=== PATIENT | female | born 1985 | race Caucasian/White ===

== ENCOUNTER 2017-01-19 11:53 | Emergency (ER) | payer OTHER ==
[~2017-01-19] VITALS: Ht 160 cm; Wt 68.0 kg
[2017-01-19 12:21] LABS: BILIRUBIN,URINE NEGATIVE (NEGATIVE); KETONES,URINE NEGATIVE (NEGATIVE); LEUKOCYTE ESTERASE ,URINE NEGATIVE (NEGATIVE); NITRITE,URINE NEGATIVE (NEGATIVE); PH,URINE 6 (5-9); PROTEIN,URINE NEGATIVE (NEGATIVE); UROBILINOGEN,URINE NORMAL (NORMAL)
[2017-01-19] MEDS ORDERED: METH25VI57 (12:31)
[2017-01-19] MEDS ORDERED: CERT400S SQ (12:31)
[2017-01-19 12:38] LABS: BASOPHILS % (AUTO) 1 % (0-10); EOSINOPHILS # (AUTO) 0.1 10^3/uL (0.0-0.3); EOSINOPHILS % (AUTO) 2 % (0-10); LYMPHOCYTES # (AUTO) 1.3 X 10^3 (1.0-4.0); LYMPHOCYTES % (AUTO) 44 % (12-44); MEAN CORPUSCULAR HEMOGLOBIN 31 PG (25-34); MEAN CORPUSCULAR HGB CONC 33 G/DL (32-36); MEAN CORPUSCULAR VOLUME 91 FL (80-99); MEAN PLATELET VOLUME 10.2 FL (7.4-10.4); MONOCYTES # (AUTO) 0.6 X 10^3 (0.0-1.0); MONOCYTES % (AUTO) 19 % (0-12); NEUTROPHILS % (AUTO) 34 % (42-75); PLATELET COUNT 220 10^3/uL (130-400); RED BLOOD COUNT 4.32 10^6/uL (4.35-5.85); RED CELL DISTRIBUTION WIDTH 12.1 % (10.0-14.5); WHITE BLOOD COUNT 2.9 10^3/uL (4.3-11.0)
[2017-01-19 12:51] LABS: ALANINE AMINOTRANSFERASE 21 U/L (0-55); ALBUMIN 4.3 G/DL (3.2-4.5); ANION GAP 5 MMOL/L (5-14); ASPARTATE AMINO TRANSFERASE 17 U/L (5-34); BILIRUBIN,TOTAL 0.3 MG/DL (0.1-1.0); BLOOD UREA NITROGEN 11 MG/DL (7-18); BUN/CREATININE RATIO 13; CALCIUM 8.3 MG/DL (8.5-10.1); CARBON DIOXIDE 24 MMOL/L (21-32); CHLORIDE 110 MMOL/L (98-107); CREATININE SERUM 0.84 MG/DL (0.60-1.30); GFR ESTIMATED > 60; GLUCOSE 89 MG/DL (70-105); POTASSIUM 4.3 MMOL/L (3.6-5.0); SODIUM 139 MMOL/L (135-145); TOTAL PROTEIN 6.9 G/DL (6.4-8.2)
--- NOTE | 2017-01-19 12:55 | ED GU-Female ---
General Chief Complaint: -Female Stated Complaint: UTI SYMPTOMS Nursing Triage Note: AMBULATED TO ROOM 08 WITH COMPLAINTS OF CHRONIC UTI SX. STATES SHE HAS BEEN TO THE AND HAS BEEN ON X2 DIFFERENT ABX THAT SEEMS UNSUCCESSFUL. Nursing Sepsis Screen: No Definite Risk Source: patient Exam Limitations: no limitations History of Present Illness Time seen by provider: 12:50 Initial Comments The patient is a 31-year-old white female known to me. 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 She reports that in the recent cycle she has had 2 previous apparent urinary tract infections for which she has taken antibiotics. She is now symptomatic again with dysuria and frequency as well as radiation up the left flank towards the kidneys posteriorly. She takes immunosuppressants for her rheumatoid arthritis. She has had many urinary tract infection symptoms over the years and has seen a urologist in [place]. Although it had been discussed she has not had a cystoscopy and biopsy. However it had been discussed as a possibility of interstitial cystitis and ultimately needing a biopsy. She has felt hot but has not taken her temperature. There've been no sweats or chills. Timing/Duration: week, getting worse, changing over time Severity/Quality: moderate Location: left flank Radiation: RLQ, LLQ Activities at Onset: none Prior Genitourinary Problems: similar symptoms Associated Symptoms: dysuria, urinary frequency Allergies and Home Medications Allergies Coded Allergies: No Known Drug Allergies (Verified , 09/04/08) Home Medications Certolizumab Pegol 400 Mg/2 Ml Syringekit, 400 MG SQ, (Reported) Methotrexate Sodium 25 Mg/1 Ml Vial, #10 (Reported) Constitutional: see HPI EENTM: no symptoms reported Respiratory: no symptoms reported Cardiovascular: no symptoms reported Gastrointestinal: no symptoms reported Genitourinary: see HPI Musculoskeletal: joint pain (rheumatoid arthritis), joint swelling, muscle stiffness Psychiatric/Neurological: No Symptoms Reported Endocrine: No Symptoms Reported Hematologic/Lymphatic: No Symptoms Reported Past Bgifckm-Zoptva-Tjmouq Hx Patient Social History Recent Foreign Travel: No Contact w/Someone Who Travel: No Recent Infectious Disease Expo: No Recent Hopitalizations: No Surgeries HX Surgeries: Yes (TONSILS REMOVED) Surgeries: Section Respiratory Hx Respiratory Disorders: No Cardiovascular Hx Cardiac Disorders: No Neurological Hx Neurological Disorders: No Reproductive System : No Hx Reproductive Disorders: No Genitourinary Hx Genitourinary Disorders: No Gastrointestinal Hx Gastrointestinal Disorders: No Musculoskeletal Hx Musculoskeletal Disorders: Yes Musculoskeletal Disorders: Rheumatoid Arthritis Endocrine Hx Endocrine Disorders: No HEENT HX ENT Disorders: No Cancer Hx Cancer: No Psychosocial Hx Psychiatric Problems: No Blood Transfusions Hx Blood Disorders: No Physical Exam Vital Signs Vital Sign - Last 12Hours 01/19/17 12:15 Temp 96.6 Pulse 85 Resp 16 B/P (MAP) 137/92 Pulse Ox 98 Capillary Refill : Less Than 3 Seconds General Appearance: mild distress HEENT: normal ENT inspection Neck: full range of motion Cardiovascular: normal peripheral pulses Respiratory: chest non-tender, lungs clear, normal breath sounds, no respiratory distress, no accessory muscle use Gastrointestinal: normal bowel sounds, other (tenderness to palpation distal to umbilicus. Somewhat more so on the right than the left) Back: CVA tenderness (L) Extremities: other (obvious an abundant evidence of rheumatoid arthritis with enlargement and deformity of the MP joints and IP joints of the hands bilaterally) Neurologic/Psychiatric: supervisor byproducts II-XII nml as tested, no motor/sensory deficits, alert, normal mood/affect, oriented x 3 Skin: normal color, warm/dry, cyanosis, cool, diaphoresis, pallor Lymphatic: no adenopathy, axilla node tender (R), axilla node tender (L), inguinal node tender (R), inguinal node tender (L) Progress/Results/Core Measures Results/Orders Lab Results Laboratory Tests Test 01/19/17 12:12 01/19/17 12:25 Range/Units Urine Color YELLOW Urine Clarity CLEAR Urine pH 6 5-9 Urine Specific [place] 1.015 L 1.016-1.022 Urine Protein NEGATIVE NEGATIVE Urine Glucose (UA) NEGATIVE NEGATIVE Urine Ketones NEGATIVE NEGATIVE Urine Nitrite NEGATIVE NEGATIVE Urine Bilirubin NEGATIVE NEGATIVE Urine Urobilinogen NORMAL NORMAL MG/DL Urine Leukocyte Esterase NEGATIVE NEGATIVE Urine RBC (Auto) 3+ H NEGATIVE Urine RBC 0-2 /HPF Urine WBC NONE /HPF Urine Squamous Epithelial Cells 2-5 /HPF Urine Crystals NONE /LPF Urine Bacteria NEGATIVE /HPF Urine Casts NONE /LPF Urine Mucus NEGATIVE /LPF Urine Culture Indicated NO White Blood Count 2.9 L 4.3-11.0 10^3/uL Red Blood Count 4.32 L 4.35-5.85 10^6/uL Hemoglobin 13.2 11.5-16.0 G/DL Hematocrit 40 35-52 % Mean Corpuscular Volume 91 80-99 FL Mean Corpuscular Hemoglobin 31 25-34 PG Mean Corpuscular Hemoglobin Concent 33 32-36 G/DL Red Cell Distribution Width 12.1 10.0-14.5 % Platelet Count 220 130-400 10^3/uL Mean Platelet Volume 10.2 7.4-10.4 FL Neutrophils (%) (Auto) 34 L 42-75 % Lymphocytes (%) (Auto) 44 12-44 % Monocytes (%) (Auto) 19 H 0-12 % Eosinophils (%) (Auto) 2 0-10 % Basophils (%) (Auto) 1 0-10 % Neutrophils # (Auto) 1.0 L 1.8-7.8 X 10^3 Lymphocytes # (Auto) 1.3 1.0-4.0 X 10^3 Monocytes # (Auto) 0.6 0.0-1.0 X 10^3 Eosinophils # (Auto) 0.1 0.0-0.3 10^3/uL Basophils # (Auto) 0.0 0.0-0.1 10^3/uL Neutrophils % (Manual) 30 % Lymphocytes % (Manual) 38 % Monocytes % (Manual) 25 % Eosinophils % (Manual) 3 % Basophils % (Manual) 2 % Band Neutrophils 1 % Reactive Lymphocytes 1 % Blood Morphology Comment NORMAL Sodium Level 139 135-145 MMOL/L Potassium Level 4.3 3.6-5.0 MMOL/L Chloride Level 110 H 98-107 MMOL/L Carbon Dioxide Level 24 21-32 MMOL/L Anion Gap 5 5-14 MMOL/L Blood Urea Nitrogen 11 7-18 MG/DL Creatinine 0.84 0.60-1.30 MG/DL Estimat Glomerular Filtration Rate > 60 BUN/Creatinine Ratio 13 Glucose Level 89 70-105 MG/DL Calcium Level 8.3 L 8.5-10.1 MG/DL Total Bilirubin 0.3 0.1-1.0 MG/DL Aspartate Amino Transf (AST/SGOT) 17 5-34 U/L Alanine Aminotransferase (ALT/SGPT) 21 0-55 U/L Alkaline Phosphatase 52 40-136 U/L Total Protein 6.9 6.4-8.2 G/DL Albumin 4.3 3.2-4.5 G/DL My Orders Orders - IVY LYON MD Ua Culture If Indicated (01/19/17 12:05) Ct Abdomen/Pelvis W (01/19/17 13:12) Iohexol Injection (Omnipaque 350 Mg/Ml 1 (01/19/17 13:15) Sodium Chloride Flush (Catheter Flush Sy (01/19/17 13:15) Ns (Ivpb) (Sodium Chloride 0.9% Ivpb Bag (01/19/17 13:15) Ondansetron Injection (Zofran Injectio (01/19/17 13:45) Medications Given in ED Current Medications Medications Dose Ordered Sig/Pati Route Start Time Stop Time Status Last Admin Dose Admin Iohexol 100 ml ONCE ONCE IV 01/19/17 13:15 01/19/17 13:24 DC 01/19/17 13:26 100 ML Ondansetron HCl 8 mg ONCE ONCE IVP 01/19/17 13:45 01/19/17 13:46 DC 01/19/17 13:47 8 MG Sodium Chloride 10 ml NEEDED PRN IV 01/19/17 13:15 01/19/17 13:26 10 ML Sodium Chloride 100 ml ONCE ONCE IV 01/19/17 13:15 01/19/17 13:24 DC 01/19/17 13:26 80 ML Vital Signs/I&O Vital Sign - Last 12Hours 01/19/17 12:15 Temp 96.6 Pulse 85 Resp 16 B/P (MAP) 137/92 Pulse Ox 98 Blood Pressure Mean: 107 Point of Care Testing Urine -Bedside: Negative Departure Communication Progress Notes [address] Raymundo. The CT scan was negative save apparent thickening of the bladder wall. This would seem to fit better with the possibility of interstitial cystitis. We have elected not to give empiric and the attic spoke to culture her urine. Her white count is depressed and the differential shifted ostensibly because of her immunosuppression for rheumatoid arthritis. In the meantime she is advised to take Pyridium. Impression Impression: Primary Impression: cystitis Disposition: 01 HOME, SELF-CARE Condition: Stable/Unchanged Departure-Patient Inst. Decision time for Depature: 14:23 Referrals: JARAD RAYMUNDO MD (PCP/Family) Primary Care Physician Add. Discharge Instructions: All discharge instructions reviewed with patient and/or family. Voiced understanding. Resume Pyridium. Plenty of liquids. Dr. Raymundo is on-call this weekend. Your culture should be available by Sunday. You may call the senior operator and ask for her. Scripts Phenazopyridine HCl (Pyridium) 200 Mg Tablet 1 TAB PO 3 times a day, #20 TAB Prov: IVY LYON MD 01/19/17 VIY YLON MD Jan 19, 2017 12:55
[2017-01-19 13:06] LABS: BAND NEUTROPHILS 1 %; BASOPHILS % (MANUAL) 2 %; EOSINOPHILS % (MANUAL) 3 %; LYMPHOCYTES % (MANUAL) 38 %; NEUTROPHILS % (MANUAL) 30 %; REACTIVE LYMPHOCYTES 1 %
[2017-01-19] MEDS ORDERED: NS 100 ML (IVPB) BAG IV ONE (13:15)
[2017-01-19] MEDS ORDERED: CATHETER FLUSH 10 ML SYR IV PRN (13:15)
[2017-01-19] MEDS ORDERED: IOHEXOL 350 MG/ML 100 ML (OMNIPAQUE 350) VIAL IV ONE (13:15)
[2017-01-19] MEDS ORDERED: ONDANSETRON 4 MG/2 ML (SDV) Z0FRAN IVP ONE (13:45)
--- NOTE | 2017-01-19 13:57 | Diagnostic Imaging Report ---
PROCEDURE: CT abdomen and pelvis with contrast. TECHNIQUE: Multiple contiguous axial images were obtained through the abdomen and pelvis after administration of intravenous contrast. INDICATION: Recurrent UTIs. Pain on left flank area. FINDINGS: The lung bases are clear. The kidneys show no evidence of hydronephrosis. There are no renal calculi. No renal masses. There is symmetrical nephrogram effect with delayed images showing normal opacification of renal collecting system and ureters bilaterally. Ureters appear normal to the bladder. Bilateral ureteral jets are present. Bladder shows mild thickening of the wall, though is not particularly distended. No pelvic masses are present. The liver appears normal. Gallbladder and bile ducts are normal. The pancreas and spleen are normal. Adrenal glands are not enlarged. The stomach and small bowel are nondistended. There is normal stool and gas pattern throughout the colon. Appendix appears to be absent with clip at the tip of the cecum. There is no free air or free fluid. IMPRESSION: 1. Normal-appearing kidneys and ureters. 2. There is uniform thickening of the bladder wall which may be secondary to chronic cystitis though this may be from underdistention of the bladder as well. Dictated by: Dictated on workstation # [id number]
[2017-01-19] MEDS ORDERED: PHEN-640 PO (14:26)
[2017-01-19 14:41] VITALS: BP 128/93
--- OUTSIDE RECORDS SUMMARY | 2017-02-11 08:13 | XMS REPORT | Continuity of Care Document ---
Author Author [facility] Organization [facility] Address Unknown Phone Unavailable Care Team Providers Care Video Game Script Writer Name Role Phone Bernadette Alves PCP [phone] Source Comments Some departments are not documenting in the electronic medical record. If you do not see the information that you expected, contact Release of Information in the Health Information Management department at [phone] for further assistance in locating additional records.[facility] Active Allergies and Adverse Reactions No Known Allergies Current Medications Prescription Sig. Disp. Refills Start End Date Status Date LORazepam (ATIVAN) 1 mg Take 1 mg by mouth as Active tablet Needed. MULTIVITAMIN PO Take 1 Tab by mouth Active daily. biotin 1 mg cap Take 1 Cap by mouth Active daily. lactobacillus rhamnosus Take 1 Cap by mouth Active GG (LACTOBACILLUS daily. RHAMNOSUS (GG)) 15 billion cell cpSP traMADol (ULTRAM) 50 mg Take 1 tab qid and 2 tabs 540 Tab 0 06/01/20 Active tablet at HS 16 folic acid (FOLVITE) 1 mg 1 Tab daily. 90 Tab 3 09/25/20 Active tablet 16 hydroxychloroquine Take 1 Tab by mouth twice 180 Tab 3 09/25/20 Active (PLAQUENIL) 200 mg tablet daily. 16 methotrexate 25 mg/mL Inject 1 mL under the 12 mL 1 09/25/20 Active injection skin every 7 days. [address] Take 1 Tab by mouth twice 180 Tab 3 09/25/20 Active (VOLTAREN) 75 mg tablet daily. Take with food. 16 Syringe with Needle To be used with 12 Each 3 09/25/20 Active (Disp) (BD TUBERCULIN Methotrexate 16 SYRINGE) 1 mL 27 x 1/2" syrg certolizumab pegol Give 200 mg sq every 2 4 mL 5 09/25/20 Active (CIMZIA STARTER KIT) 400 wks 16 mg/2 mL (200 mg/mL x 2) syringe CIPROFLOXACIN HCL (CIPRO Take by mouth. Active PO) NITROFURANTOIN Take by mouth. Active MONOHYD/M-CRYST (MACROBID PO) prednisone (DELTASONE) 5 Take 10mg (2tabs) x 3 9 Tab 0 02/03/20 Active mg tablet days, then 5mg x3 days, 17 then stop. 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 Increasing doses of RA meds since with 6 month history or UTI. Meds recently stopped due to fear of recurrent UTI. 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 Most Recent Encounters Date Type Specialty Providers Description 02/02/2017 Refill Allergy,Immunology and Naomi Carranza, DO Rheumatology 02/02/2017 Telephone Allergy,Immunology and Lexie Beard APRN Medication Question - Rheumatology prednisone for flare 01/22/2017 Office Visit Allergy,Immunology and Lexie Beard APRN Juvenile idiopathic Rheumatology arthritis (HCC) (Primary Dx); Polyarthralgia; Encounter for long-term (current) use of high-risk medication Immunizations Name Dates Previously Given Next Due Flu Vaccine >64yo 07/30/2012 High-dose (Preservative Free) Flu Vaccine Trivalent >64 08/20/2015 Yo High-dose (Preservative Free) Pneumococcal Vaccine 07/30/2012 (23-[place] Adult) Pneumococcal 04/07/2014 Vaccine(13-[facility]/immunocompromised adult) Social History Tobacco Use Types Packs/Day Years Used Date Never Smoker Smokeless Tobacco: Never Used Tobacco Cessation: Counseling Given: Yes Comments: Alcohol Use Drinks/Week oz/Week Comments Yes 2 Glasses of 1.2 occasional wine Last Filed Vital Signs Vital Sign Reading Time Taken Blood Pressure 112/74 01/22/2017 10:39 AM CDT Pulse 88 01/22/2017 10:39 AM CDT Temperature 37.1 C (98.8 F) 01/22/2017 10:39 AM CDT Respiratory Rate 16 01/22/2017 10:39 AM CDT Height 1.626 m (5' 4") 01/22/2017 10:39 AM CDT Weight 68.675 kg (151 lb 6.4 oz) 01/22/2017 10:39 AM CDT Body Mass Index 25.98 01/22/2017 10:39 AM CDT Oxygen Saturation 99% 06/23/2016 3:45 PM CDT Plan of Care Health Maintenance Due Date Last Done Comments Pertussis Vaccine 1997 Tetanus Vaccine 2003 Physical (Comprehensive) 11/15/2011 11/15/2010 Exam Cervical Cancer Screening 12/16/2013 12/16/2010, 09/21/2009 Influenza Vaccine 06/22/2017 08/20/2015, 07/30/2012, 05/15/2010 Results from Last 3 Months Not on file
== END 2017-01-19 14:41 | disposition home or self-care (01) ==
LOC: EDUNIT# 11:53 → ER 11:59
DX: N30.90 Cystitis, unspecified without hematuria (principal); M06.9 Rheumatoid arthritis, unspecified; Z79.899 Other long term (current) drug therapy; Z87.442 Personal history of urinary calculi
CPT/HCPCS: 36415; 74177; 80053; 81000; 84703; 85007; 85027; 87077; 87088; 87186; 96374

== ENCOUNTER 2018-03-31 16:35 | Observation (INO) | payer BC, OTHER ==
[~2018-03-31] VITALS: Ht 162.6 cm; Wt 74.2 kg
[~2018-03-31 16:35] MED LIST: CERT400S SQ; METH25VI57; PHEN-640 PO
[2018-03-31 17:03] LABS: CLARITY,URINE CLEAR; GLUCOSE, URINE (UA) NEGATIVE (NEGATIVE); KETONES,URINE NEGATIVE (NEGATIVE); LEUKOCYTE ESTERASE ,URINE NEGATIVE (NEGATIVE); NITRITE,URINE POSITIVE (NEGATIVE); PH,URINE 6.5 (5-9); PROTEIN,URINE NEGATIVE (NEGATIVE); UROBILINOGEN,URINE 4 MG/DL (NORMAL)
[2018-03-31] MEDS ORDERED: NITR100C10 PO (17:09)
[2018-03-31] MEDS ORDERED: ONDA4TAB11 PO (17:09)
[2018-03-31 17:25] LABS: BACTERIA,URINE NEGATIVE /HPF; COLOR,URINE ORANGE; SQUAMOUS EPITHELIAL CELL,UR 0-2 /HPF
[2018-03-31 17:26] LABS: BILIRUBIN,URINE 2+ (NEGATIVE)
[2018-03-31] MEDS ORDERED: NS IV 1000 ML 1,000 ML IV SCH (17:58)
[2018-03-31] MEDS ORDERED: HYDROcodone/APAP 7.5 MG/325 MG (LORTAB, LORCET PLUS) TABLET PO STA (18:11)
[2018-03-31] MEDS ORDERED: ONDANSETRON 4 MG/2 ML (SDV) Z0FRAN IVP ONE (18:15)
[2018-03-31 18:20] LABS: BASOPHILS % (AUTO) 0 % (0-10); EOSINOPHILS # (AUTO) 0.3 10^3/uL (0.0-0.3); EOSINOPHILS % (AUTO) 3 % (0-10); HEMATOCRIT 38 % (35-52); LYMPHOCYTES # (AUTO) 2.4 X 10^3 (1.0-4.0); LYMPHOCYTES % (AUTO) 28 % (12-44); MEAN CORPUSCULAR HEMOGLOBIN 31 PG (25-34); MEAN CORPUSCULAR HGB CONC 37 G/DL (32-36); MEAN CORPUSCULAR VOLUME 86 FL (80-99); MEAN PLATELET VOLUME 10.1 FL (7.4-10.4); MONOCYTES # (AUTO) 0.7 X 10^3 (0.0-1.0); MONOCYTES % (AUTO) 8 % (0-12); NEUTROPHILS # (AUTO) 5.3 X 10^3 (1.8-7.8); NEUTROPHILS % (AUTO) 61 % (42-75); PLATELET COUNT 323 10^3/uL (130-400); RED BLOOD COUNT 4.48 10^6/uL (4.35-5.85); WHITE BLOOD COUNT 8.7 10^3/uL (4.3-11.0)
--- NOTE | 2018-03-31 18:34 | Diagnostic Imaging Report ---
PROCEDURE: CT urinary tract, rule out kidney stone. TECHNIQUE: Multiple contiguous axial images were obtained through the abdomen and pelvis without the use of intravenous contrast. INDICATION: Left-sided flank pain x5 days. CORRELATION STUDY: 01/19/2017. FINDINGS: LOWER THORAX: Tiny 4 mm nodule in the right middle lobe. LIVER: Unremarkable. GALLBLADDER: Slightly contracted, otherwise unremarkable. SPLEEN: Unremarkable. PANCREAS: Unremarkable. ADRENAL GLANDS: Unremarkable. KIDNEYS: Normal configuration. No calcification or obstruction. ABDOMINAL AORTA: Unremarkable, nonaneurysmal. GASTROINTESTINAL TRACT: Mcyh-db-glyjaauh severity fecal retention. Likely prior appendectomy. No obstruction or inflammation. No abdominal ascites or free air. URINARY BLADDER: Slightly distended, otherwise unremarkable. REPRODUCTIVE: Uterus and adnexa appearing unremarkable. OSSEOUS STRUCTURES: No acute abnormality. OTHER: None. IMPRESSION: 1. Noncontrast imaging demonstrates no acute abnormality about the abdomen and/or pelvis. No evidence for nephroureterolithiasis or obstructive uropathy. Likely prior appendectomy. Dictated by: Dictated on workstation # [id number]
--- NOTE | 2018-03-31 18:39 | ED GU-Female ---
General Chief Complaint: -Female Stated Complaint: UTI/KIDNEY INFECTION/N/V/BACK PAIN Nursing Triage Note: TO ROOM REPORTS HAS HAD UTI SYMPTOMS FOR 2 WEEKS HAS BEEN SEEN AT [facility] HAS BEEN ON CIPRO. LAST SEEN AT [facility] ON SUNDAY GIVEN 2 LITERS OF FLUID WITH ROCEPHIN AND STARTED ON MACROBID WAS TOLD TO COME TO ER IF NO IMPROVEMENT Nursing Sepsis Screen: No Definite Risk History of Present Illness Date Seen by Provider: Mar 31, 2018 Time Seen by Provider: 17:40 Initial Comments 32-year-old female presents for continued UTI. She began treatment for UTI 2 weeks ago with Cipro, her symptoms were not improving and on 03/28/18 she was given Rocephin IM and 2 L of IV fluids, a repeat Rocephin IM was given . Since then she's been taking Macrobid but continues to have left-sided flank and back pain. She has recurrent UTIs and often needs more than one antibiotic for treatment, her most recent UTI was approximately one month ago and she was treated with Cipro and improved immediately. She is now complaining of nausea and abdominal pain. She has been taking Tylenol and ibuprofen throughout the day today with minimal improvement in her symptoms. She is on immunosuppressants for RA. She is taking Orencia once a week for her rheumatoid arthritis, she is not currently taking steroids or methotrexate. Timing/Duration: getting worse Severity/Quality: moderate Location: suprapubic, left flank Prior Genitourinary Problems: none Sexual [place] History: single partner Modifying Factors: Improves With Lying down, Improves With Resting Associated Symptoms: dysuria, fever/chills, lower back pain, nausea/vomiting, polyuria Allergies and Home Medications Allergies Coded Allergies: No Known Drug Allergies (Verified , 09/04/08) Home Medications Phenazopyridine HCl 200 Mg Tablet, 1 TAB PO 3 times a day Prescribed by: IVY LYON on 01/19/17 9349 Patient Home Medication List Home Medication List Reviewed: Yes Review of Systems Constitutional: no symptoms reported, see HPI Genitourinary: see HPI, dysuria, flank pain, pain, urgency : No All Other Systemes Reviewed Negative Unless Noted: Yes Past Sngclsf-Bwlvgt-Ndrxjf Hx Past Med/Social Hx: Reviewed Nursing Past Med/Soc Hx Patient Social History Alcohol Use: Denies Use Recreational Drug Use: No Smoking Status: Never a Smoker Recent Foreign Travel: No Contact w/Someone Who Travel: No Recent Infectious Disease Expo: No Recent Hopitalizations: No Past Medical History Surgeries: Yes (TONSILS REMOVED) Section Respiratory: No Cardiac: No Neurological: No Reproductive Disorders: No Gastrointestinal: No Musculoskeletal: Yes Rheumatoid Arthritis Endocrine: No Cancer: No Psychosocial: No Blood Disorders: No Family Medical History Reviewed Nursing Family Hx No Pertinent Family Hx Physical Exam Vital Signs Vital Signs - First Documented 03/31/18 16:50 Temp 98.0 Pulse 90 Resp 18 B/P (MAP) 123/88 (100) Pulse Ox 98 O2 Delivery Room Air Capillary Refill : Less Than 3 Seconds General Appearance: WD/WN, no apparent distress HEENT: PERRL/EOMI, normal ENT inspection Neck: non-tender, full range of motion, supple Cardiovascular: normal peripheral pulses, regular rate, rhythm, no murmur Respiratory: chest non-tender, lungs clear, normal breath sounds Gastrointestinal: normal bowel sounds, soft, tenderness (suprapubic and left flank) Extremities: normal range of motion, non-tender Neurologic/Psychiatric: no motor/sensory deficits, alert, normal mood/affect, oriented x 3 Skin: normal color, warm/dry Progress/Results/Core Measures Suspected Sepsis Recent Fever Within 48 Hours: No Infection Criteria Present: None New/Unexplained Altered Menta: No Sepsis Screen: No Definite Risk SIRS Temperature:98.0 Pulse: 90 Respiratory Rate: 18 Laboratory Tests 03/31/18 18:11: White Blood Count 8.7 Blood Pressure 123 /88 Mean: 100 Laboratory Tests 03/31/18 18:11: Creatinine 0.93, Platelet Count 323, Total Bilirubin 0.4 Results/Orders Lab Results Laboratory Tests Test 03/31/18 16:56 03/31/18 18:11 Range/Units Urine Color ORANGE Urine Clarity CLEAR Urine pH 6.5 5-9 Urine Specific [place] 1.005 L 1.016-1.022 Urine Protein NEGATIVE NEGATIVE Urine Glucose (UA) NEGATIVE NEGATIVE Urine Ketones NEGATIVE NEGATIVE Urine Nitrite POSITIVE H NEGATIVE Urine Bilirubin 2+ H NEGATIVE Urine Urobilinogen 4 H NORMAL MG/DL Urine Leukocyte Esterase NEGATIVE NEGATIVE Urine RBC (Auto) NEGATIVE NEGATIVE Urine RBC NONE /HPF Urine WBC NONE /HPF Urine Squamous Epithelial Cells 0-2 /HPF Urine Renal Epithelial Cells NONE /HPF Urine Crystals NONE /LPF Urine Bacteria NEGATIVE /HPF Urine Casts NONE /LPF Urine Mucus NEGATIVE /LPF Urine Culture Indicated NO Urine Test NEGATIVE NEGATIVE White Blood Count 8.7 4.3-11.0 10^3/uL Red Blood Count 4.48 4.35-5.85 10^6/uL Hemoglobin 14.0 11.5-16.0 G/DL Hematocrit 38 35-52 % Mean Corpuscular Volume 86 80-99 FL Mean Corpuscular Hemoglobin 31 25-34 PG Mean Corpuscular Hemoglobin Concent 37 H 32-36 G/DL Red Cell Distribution Width 12.0 10.0-14.5 % Platelet Count 323 130-400 10^3/uL Mean Platelet Volume 10.1 7.4-10.4 FL Neutrophils (%) (Auto) 61 42-75 % Lymphocytes (%) (Auto) 28 12-44 % Monocytes (%) (Auto) 8 0-12 % Eosinophils (%) (Auto) 3 0-10 % Basophils (%) (Auto) 0 0-10 % Neutrophils # (Auto) 5.3 1.8-7.8 X 10^3 Lymphocytes # (Auto) 2.4 1.0-4.0 X 10^3 Monocytes # (Auto) 0.7 0.0-1.0 X 10^3 Eosinophils # (Auto) 0.3 0.0-0.3 10^3/uL Basophils # (Auto) 0.0 0.0-0.1 10^3/uL Sodium Level 137 135-145 MMOL/L Potassium Level 3.7 3.6-5.0 MMOL/L Chloride Level 106 98-107 MMOL/L Carbon Dioxide Level 18 L 21-32 MMOL/L Anion Gap 13 5-14 MMOL/L Blood Urea Nitrogen 15 7-18 MG/DL Creatinine 0.93 0.60-1.30 MG/DL Estimat Glomerular Filtration Rate > 60 BUN/Creatinine Ratio 16 Glucose Level 88 70-105 MG/DL Calcium Level 9.4 8.5-10.1 MG/DL Total Bilirubin 0.4 0.1-1.0 MG/DL Aspartate Amino Transf (AST/SGOT) 23 5-34 U/L Alanine Aminotransferase (ALT/SGPT) 27 0-55 U/L Alkaline Phosphatase 64 40-136 U/L Total Protein 7.6 6.4-8.2 GM/DL Albumin 4.5 3.2-4.5 GM/DL My Orders Orders - CUATE ANDRES Ua Culture If Indicated (03/31/18 16:41) Urine Bedside (03/31/18 16:57) Ct Abd/Pelvis Wo(Kidney Stone) (03/31/18 17:48) Cbc With Automated Diff (03/31/18 17:58) Comprehensive Metabolic Panel (03/31/18 17:58) Saline Lock/Iv-Start (03/31/18 17:58) Ns Iv 1000 Ml (Sodium Chloride 0.9%) (03/31/18 17:58) Hydrocodone/Apap 7.5/325 Tab (Lortab 7. (03/31/18 18:11) Ondansetron Injection (Zofran Injectio (03/31/18 18:15) Urine Culture (03/31/18 19:51) Medications Given in ED Current Medications Medications Dose Ordered Sig/Pati Route Start Time Stop Time Status Last Admin Dose Admin Ondansetron HCl 4 mg ONCE ONCE IVP 03/31/18 18:15 03/31/18 18:16 DC 03/31/18 18:16 4 MG Vital Signs/I&O 03/31/18 03/31/18 16:50 19:36 Temp 98.0 97.7 Pulse 90 81 Resp 18 18 B/P (MAP) 123/88 (100) 114/73 (100) Pulse Ox 98 97 O2 Delivery Room Air Room Air Capillary Refill : Less Than 3 Seconds Blood Pressure Mean: 100 Progress Note : Time: 17:40 Progress Note Initial evaluation completed, recommended UA, hCG, CBC and CMP. Due to the patient's continued symptoms and poor response to [address] of the abdomen and pelvis to rule out and obstruction or hydronephrosis. 5 results of study discussed with the patient. We've given her Toradol 30 mg IV, Zofran 4 mg IV, and 1 L normal saline. She does report slight improvement in her nausea and pain that she continues to have tenderness in the suprapubic region and left flank. 5 discussed patient's exam and laboratorydiagnostic studies with Dr. Lai per phone, concerned patient may have interstitial cystitis versus pyelonephritis. Agreed with recommendation for admission will use vancomycin and meropenem for IV antibiotic coverage. Discussed this with the patient and her are in agreement with this treatment plan. Admission orders completed. Diagnostic Imaging Diagonstic Imaging: CT Plain Films/CT/US/NM/MRI: abdomen, pelvis Comments NAME: DERRELL CLEMENT [facility] REC#: [id number] PT STATUS: REG ER : 1985 PHYSICIAN: CUATE ANDRES ADMIT DATE: 03/31/18/ER Draft Date of Exam:03/31/18 CT ABD/PELVIS WO(KIDNEY STONE) PROCEDURE: CT urinary tract, rule out kidney stone. TECHNIQUE: Multiple contiguous axial images were obtained through the abdomen and pelvis without the use of intravenous contrast. INDICATION: Left-sided flank pain x5 days. CORRELATION STUDY: 01/19/2017. FINDINGS: LOWER THORAX: Tiny 4 mm nodule in the right middle lobe. LIVER: Unremarkable. GALLBLADDER: Slightly contracted, otherwise unremarkable. SPLEEN: Unremarkable. PANCREAS: Unremarkable. ADRENAL GLANDS: Unremarkable. KIDNEYS: Normal configuration. No calcification or obstruction. ABDOMINAL AORTA: Unremarkable, nonaneurysmal. GASTROINTESTINAL TRACT: Kuwf-bx-owozcoli severity fecal retention. Likely prior appendectomy. No obstruction or inflammation. No abdominal ascites or free air. URINARY BLADDER: Slightly distended, otherwise unremarkable. REPRODUCTIVE: Uterus and adnexa appearing unremarkable. OSSEOUS STRUCTURES: No acute abnormality. OTHER: None. IMPRESSION: 1. Noncontrast imaging demonstrates no acute abnormality about the abdomen and/or pelvis. No evidence for nephroureterolithiasis or obstructive uropathy. Likely prior appendectomy. Dictated on workstation # [id number] Dict: 03/31/18 1813 Trans: 03/31/18 1834 [id number] Reviewed: Reviewed by Me Departure Impression Primary Impression: Interstitial cystitis Additional Impression: Acute UTI Disposition: ADMITTED INPATIENT Condition: Stable Admissions Decision to Admit Reason: Admit from ER (General) Decision to Admit/Date: Mar 31, 2018 Time/Decision to Admit Time: 19:30 Departure-Patient Inst. Referrals: JARAD CUETO MD (PCP/Family) Primary Care Physician Copy Copies To 1: JARAD CUETO MD, AMY ARNP Mar 31, 2018 18:39
[2018-03-31 18:40] LABS: ALANINE AMINOTRANSFERASE 27 U/L (0-55); ALBUMIN 4.5 GM/DL (3.2-4.5); ALKALINE PHOSPHATASE 64 U/L (40-136); BILIRUBIN,TOTAL 0.4 MG/DL (0.1-1.0); BUN/CREATININE RATIO 16; CALCIUM 9.4 MG/DL (8.5-10.1); CARBON DIOXIDE 18 MMOL/L (21-32); CHLORIDE 106 MMOL/L (98-107); CREATININE SERUM 0.93 MG/DL (0.60-1.30); GFR ESTIMATED > 60; GLUCOSE 88 MG/DL (70-105); POTASSIUM 3.7 MMOL/L (3.6-5.0); SODIUM 137 MMOL/L (135-145); TOTAL PROTEIN 7.6 GM/DL (6.4-8.2)
--- OUTSIDE RECORDS SUMMARY | 2018-03-31 19:43 | XMS REPORT | Clinical Summary ---
Author Author [facility] Organization [facility] Address Unknown Phone Unavailable Care Team Providers Care Mobile Service Rv Technician Name Role Phone Rahul Briggs MD Unavailable Unavailable Casandra Regalado MD Unavailable Bernadette Alves MD PCP Carrington Rouse MD Unavailable Anum Gunderson MD Unavailable Unavailable Lexie Beard APRN Unavailable Unavailable Jon Barajas MD Unavailable Luz Renteria MD Unavailable Talya Lou RN Unavailable Unavailable Chrissy Peters PA-C Unavailable Clarisse Arrieta RN Unavailable Unavailable Doctor, Miscellaneous 3 Unavailable Source Comments Some departments are not documenting in the electronic medical record. If you do not see the information that you expected, contact Release of Information in the Health Information Management department at [phone] for further assistance in locating additional records.[facility] Allergies No Known Allergies Current Medications Prescription Sig. [...] daily. RHAMNOSUS (GG)) 15 billion cell cpSP NITROFURANTOIN Take by mouth. Active MONOHYD/M-CRYST (MACROBID PO) hydroxychloroquine TAKE 1 TABLET BY MOUTH 180 tablet 2 11/19/20 Active (PLAQUENIL) 200 mg tablet TWICE DAILY [address] TAKE 1 TABLET BY MOUTH 180 tablet 2 09/09/20 Active (VOLTAREN) 75 mg tablet TWICE DAILY WITH FOOD 17 abatacept 125 mg/mL syrg Inject 125 mg under the 12 mL 1 02/26/20 Active skin every 7 days. 18 desvenlafaxine(+) Take 100 mg by mouth Active (PRISTIQ) 50 mg tablet daily. 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 Encounters Date Type Specialty Care Team Description 03/28/2018 Telephone Allergy,Immunology and Meghna Meng MD Other ( lab orders to [facility]) 03/26/2018 Office Visit Allergy,Immunology and Meghna Meng MD Juvenile idiopathic Rheumatology arthritis (HCC) (Primary Dx) 02/22/2018 Refill Allergy,Immunology and Meghna Meng MD Rheumatology from Last 3 Months Immunizations Name Dates Previously Given Next Due Flu Vaccine >64yo 07/30/2012 High-dose (Preservative Free) Flu Vaccine Trivalent >64 08/20/2015 Yo High-dose (Preservative Free) Pneumococcal Vaccine 07/30/2012 (23-[place] Adult) Pneumococcal 04/07/2014 Vaccine(13-[facility]/immunocompromised adult) Family History Medical History Relation Name Comments Arthritis Mother Arthritis-rheumatoid Mother Arthritis Other GRANDPARENTS Cancer Other GRANDFATHER Diabetes Other GRANDMOTHER Relation Name Status Comments Mother Other Other Other Social History Tobacco Use Types Packs/Day Years Used Date Never Smoker Smokeless Tobacco: Never Used Tobacco Cessation: Counseling Given: Yes Alcohol Use Drinks/Week oz/Week Comments Yes 2 Glasses of 1.2 occasional wine Sex Assigned at Date Recorded Not on file Last Filed Vital Signs Vital Sign Reading Time Taken Blood Pressure 132/80 03/26/2018 11:01 AM CDT Pulse 92 03/26/2018 11:01 AM CDT Temperature 36.9 C (98.4 F) 03/26/2018 11:01 AM CDT Respiratory Rate 18 03/26/2018 11:01 AM CDT Oxygen Saturation 98% 03/26/2018 11:01 AM CDT Inhaled Oxygen - - Concentration Weight 72.6 kg (160 lb) 03/26/2018 11:01 AM CDT Height 162.6 cm (5' 4") 03/26/2018 11:01 AM CDT Body Mass Index 27.46 03/26/2018 11:01 AM CDT Plan of Treatment Health Maintenance Due Date Last Done Comments PERTUSSIS VACCINE 1997 HIV SCREENING 2001 TETANUS VACCINE 2003 PHYSICAL (COMPREHENSIVE) 11/15/2011 11/15/2010 EXAM CERVICAL CANCER SCREENING 2016 12/16/2010, 09/21/2009 INFLUENZA VACCINE 07/22/2018 08/20/2015, 07/30/2012, 05/15/2010 Results Not on filefrom Last 3 Months
--- OUTSIDE RECORDS SUMMARY | 2018-03-31 19:43 | XMS REPORT | Encounter Summary ---
Author Author [facility] Organization [facility] Address Unknown Phone Unavailable Care Team Providers Care Back Pad Inspector Name Role Phone Rahul Briggs MD Unavailable Unavailable Casandra Regalado MD Unavailable Bernadette Alves MD PCP Carrington Rouse MD Unavailable Anum Gunderson MD Unavailable Unavailable Lexie Beard APRN Unavailable Unavailable Jon Barajas MD Unavailable Luz Renteria MD Unavailable Talya Lou RN Unavailable Unavailable Chrissy Peters PA-C Unavailable Clarisse Arrieta RN Unavailable Unavailable Doctor, Miscellaneous 3 Unavailable Reason for Visit * Reason Comments Medication Refill Encounter Details Date Type Department Care Team Description 02/22/2018 Refill [facility] Meghna Meng MD Physicians - Internal [address] [facility] Medicine [place] [address] [place] [address] [address] [facility] MED [phone] [place] [address] Social History Tobacco Use Types Packs/Day Years Used Date Never Smoker Smokeless Tobacco: Never Used Alcohol Use Drinks/Week oz/Week Comments Yes 2 Glasses of 1.2 occasional wine Sex Assigned at Date Recorded Not on file as of this encounter Miscellaneous Notes * Telephone Encounter - Anabell Morrison, RN - 02/22/2018 9:48 AM CDT Pharmacy is requesting a refill of Orencia. Patient last seen 10/12/2017, cancelled follow-up for 02/22/2018. Called patient, states she had to cancel today due to a leadership conference with work. Transferred patient to scheduling to arrange first available appointment and have patient added to wait -list. Routing to Dr. Meng for approval. in this encounter Plan of Treatment Not on fileas of this encounter Visit Diagnoses Not on filein this encounter
--- OUTSIDE RECORDS SUMMARY | 2018-03-31 19:43 | XMS REPORT | Encounter Summary ---
Author Author [facility] Organization [facility] Address Unknown Phone Unavailable Care Team Providers Care Records Analyst Name Role Phone Rahul Briggs MD Unavailable Unavailable Casandra Regalado MD Unavailable Bernadette Alves MD PCP Carrington Rouse MD Unavailable Anum Gunderson MD Unavailable Unavailable Lexie Beard APRN Unavailable Unavailable Jon Barajas MD Unavailable Luz Renteria MD Unavailable Talya Lou RN Unavailable Unavailable Chrissy Peters PA-C Unavailable Clarisse Arrieta RN Unavailable Unavailable Doctor, Miscellaneous 3 Unavailable Reason for Visit * Reason Comments Other lab orders to [facility] Lab Encounter Details Date Type Department Care Team Description 03/28/2018 Telephone [facility] Meghna Meng MD Other ( lab orders to [facility] Physicians - Internal [address] Lab) Medicine [place] [address] [place] [address] MED [phone] [place] [address] Social History Tobacco Use Types Packs/Day Years Used Date Never Smoker Smokeless Tobacco: Never Used Alcohol Use Drinks/Week oz/Week Comments Yes 2 Glasses of 1.2 occasional wine Sex Assigned at Date Recorded Not on file as of this encounter Miscellaneous Notes * Telephone Encounter - Anabell Morrison RN - 03/28/2018 9:48 AM CDT Faxed renewal of monitoring labs to [facility] p: [phone] f: [phone] 03/26/2019. in this encounter Plan of Treatment Not on fileas of this encounter Visit Diagnoses Not on filein this encounter
--- OUTSIDE RECORDS SUMMARY | 2018-03-31 19:43 | XMS REPORT | Encounter Summary ---
Author Author [facility] Organization [facility] Address Unknown Phone Unavailable Care Team Providers Care Senior Online Marketing Manager Name Role Phone Rahul Briggs MD Unavailable Unavailable Casandra Regalado MD Unavailable Bernadette Alves MD PCP Carrington Rouse MD Unavailable Anum Gunderson MD Unavailable Unavailable Lexie Beard APRN Unavailable Unavailable Jon Barajas MD Unavailable Luz Renteria MD Unavailable Talya Lou RN Unavailable Unavailable Chrissy Peters PA-C Unavailable Clarisse Arrieta RN Unavailable Unavailable Doctor, Miscellaneous 3 Unavailable Reason for Visit * Reason Comments Office Visit Follow Up Encounter Details Date Type Department Care Team Description 03/26/2018 Office Visit [facility] Meghna Meng MD Juvenile idiopathic Physicians - Internal [address] arthritis (HCC) (Primary Medicine [address]) [address] [place] [address] MED [phone] [place] [address] Social History Tobacco Use Types Packs/Day Years Used Date Never Smoker Smokeless Tobacco: Never Used Alcohol Use Drinks/Week oz/Week Comments Yes 2 Glasses of 1.2 occasional wine Sex Assigned at Date Recorded Not on file as of this encounter Last Filed Vital Signs Vital Sign Reading [...] Mass Index 27.46 03/26/2018 11:01 AM CDT in this encounter Instructions * Patient Instructions - Meghna Meng MD - 03/26/2018 10:30 AM CDT 1. Continue Orencia. 2. Continue hydroxychloroquine. 3. Update labs. in this encounter Progress Notes * Meghna Meng MD - 03/26/2018 10:30 AM CDT Formatting of this note may be different from the original. Date of Service: 03/26/2018 Subjective: Edgar Silva is a 32 y.o. female. History of Present Illness Ms. Silva returns for follow-up of juvenile idiopathic arthritis. Her history of juvenile idiopathic arthritis dates back to 18 months of age. Elbows were initially impacted and then over time the wrists and hands as well. Lower extremities have not been significantly involved over time. It does not appear that she had any fever or rash corresponding to her initial diagnosis. RF and MICHELLE status is not known. She has no history of inflammatory eye disease. She has undergone right elbow replacement. Imaging demonstrates erosive changes. She has no personal or family history of psoriasis or inflammatory bowel disease. Her mother has a diagnosis of rheumatoid arthritis. She reports being on prednisone dating back to kindergarten. At age 14, she was started on etanercept. She was one of the first children to receive etanercept. This was a very helpful medication for her. In high school, she was able to participate in competitive dance. She feels like she was at her best in college when she was taking 2 nabumetone per day and etanercept once per month. She became at 23 and then had to stop etanercept. She had significant worsening of the joint symptoms. She was initially restarted on etanercept and nabumetone. Then methotrexate was added along with hydroxychloroquine. Etanercept was then switched to adalimumab followed by certolizumab. In 09/2017, certolizumab was switched to abatacept and methotrexate was discontinued. In summary of prior therapies, methotrexate, hydroxychloroquine, etanercept, adalimumab, certolizumab, and abatacept. She reports that she has tolerated the abatacept well. She has not noticed any side effects. Cost has not been an issue. She feels like overall her joint symptoms are well controlled. Morning stiffness has not been problematic. Previously, recurrent infections including urinary tract infections and sinus infections were particularly problematic. She feels like the infections have been less problematic since switching to abatacept. She has noticed that it has been difficult to get her rings on. Immunizations: PCV13 03/2014. PPSV23 07/2012. Infection monitoring: Tuberculosis negative 02/2016. Hepatitis B and C negative 09/2017. Review of Systems Genitourinary: Positive for frequency. Musculoskeletal: Positive for arthralgias, back pain and joint swelling. Psychiatric/Behavioral: Positive for sleep disturbance. The patient is nervous/ anxious. All other systems reviewed and are negative. Past Medical History: Diagnosis Date Arthritis Contracture of elbow joint BILATERAL, LONGSTANDING History of juvenile rheumatoid arthritis Past Surgical History: Procedure Laterality Date APPENDECTOMY 2008 SECTION, CLASSIC 2009 TISSUE GRAFT 01/06/2013 Fat grafting ULNAR TUNNEL RELEASE Right 12/2014 [place] TISSUE GRAFTS OTHER N/A 06/23/2016 FAT GRAFTING TO BACK OF RIGHT THIGH DEFORMITY performed by Jon Barajas MD at [facility] HX JOINT REPLACEMENT right elbow Family History Problem Relation Age of Onset Arthritis Other GRANDPARENTS Arthritis-rheumatoid Mother Arthritis Mother Cancer Other GRANDFATHER Diabetes Other GRANDMOTHER Social History Social History Marital status: Spouse name: N/A Number of children: N/A Years of education: N/A Social History Main Topics Smoking status: Never Smoker Smokeless tobacco: Never Used Alcohol use 1.2 oz/week 2 Glasses of wine per week Comment: occasional Drug use: No Sexual activity: Yes Partners: Male Other Topics Concern Not on file Social History Narrative No narrative on file Objective: abatacept 125 mg/mL syrg Inject 125 mg under the skin every 7 days. biotin 1 mg cap Take 1 Cap by mouth daily. desvenlafaxine(+) (PRISTIQ) 50 mg tablet Take 100 mg by mouth daily. diclofenac sodium DR (VOLTAREN) 75 mg tablet TAKE 1 TABLET BY MOUTH TWICE DAILY WITH FOOD hydroxychloroquine (PLAQUENIL) 200 mg tablet TAKE 1 TABLET BY MOUTH TWICE DAILY lactobacillus rhamnosus GG (LACTOBACILLUS RHAMNOSUS (GG)) 15 billion cell cpSP Take 1 Cap by mouth daily. LORazepam (ATIVAN) 1 mg tablet Take 1 mg by mouth as Needed. MULTIVITAMIN PO Take 1 Tab by mouth daily. NITROFURANTOIN MONOHYD/M-CRYST (MACROBID PO) Take by mouth. Vitals: 03/26/18 1101 BP: 132/80 Pulse: 92 Resp: 18 Temp: 36.9 C (98.4 F) TempSrc: Oral SpO2: 98% Weight: 72.6 kg (160 lb) Height: 162.6 cm (64") Body mass index is 27.46 kg/m. Physical Exam General: Alert and oriented, no acute distress. Eye: Clear conjunctiva and lids. HEENT: Moist mucous membranes with no oral or nasal ulcers. Lymph: No cervical or supraclavicular lymphadenopathy. CV: Regular rate and rhythm; no murmur/gallop/rub. Vessels: Normal radial and pedal pulses. Pulm: Clear to auscultation bilaterally. Abdomen: Soft, nontender, nondistended. Skin: No malar rash, heliotrope rash, Gottron's papules, sclerodactyly, telangiectasias, or psoriatic plaques. MSK: No tenderness or swelling of the sternoclavicular joints, acromioclavicular joints, shoulders. Right elbow with reduced range of motion surgical scars noted. Left elbow with restricted range of motion. Bilateral wrists with restricted range of motion. MCP negative bilaterally. Her fifth PIP flexion; left fourth and fifth PIP flexion deformity. No tenderness or swelling of the knees, ankles. Clinical Disease Activity Index Tender Jt Ct (TJC): [address] (SJC): 0 Visual Analogue Scale - Pt Global Assessment: 4.5 Visual Analogue Scale - Plastic Sheeting Cutter Global Assessment: 2 CDAI TOTAL SCORE: 9.5 CDAI Interpretation: 2.8--10 Low Dis Activity Assessment and Plan: #1 Juvenile idiopathic arthritis #2 Recurrent urinary tract infections - improved #3 Recurrent sinus infections - improved She has had symptomatic improvement with the change to abatacept. She has also noticed improvement in the number of infections that she has been experiencing. The symptoms that she is noticing with her fingers with difficulty with getting rings on appears to be more related to chronic synovial thickening and changes rather than active inflammation. We will plan to continue with abatacept and hydroxychloroquine. We reviewed the update laboratory monitoring. We reviewed need for annual eye examination while on hydroxychloroquine. Recommendations: 1. Continue abatacept and hydroxychloroquine. 2. Lab monitoring every 6 months. 3. PPSV23 at next visit. 4. Annual eye examination. in this encounter Plan of Treatment Name Priority Associated Diagnoses Order Schedule ALT (SGPT) Routine Juvenile idiopathic Every 12 Weeks for 4 arthritis (HCC) Occurrences starting 03/26/2018 until 03/26/2019 CBC Routine Juvenile idiopathic Every 12 Weeks for 4 arthritis (HCC) Occurrences starting 03/26/2018 until 03/26/2019 CREATININE Routine Juvenile idiopathic Every 12 Weeks for 4 arthritis (HCC) Occurrences starting 03/26/2018 until 03/26/2019 C REACTIVE PROTEIN (CRP) Routine Juvenile idiopathic Every 12 Weeks for 4 arthritis (HCC) Occurrences starting 03/26/2018 until 03/26/2019 as of this encounter Visit Diagnoses Diagnosis Juvenile idiopathic arthritis (HCC) - Primary Polyarticular juvenile rheumatoid arthritis, chronic or unspecified
[2018-03-31 19:50] VITALS: BP 124/75
[2018-03-31] MEDS: ONDANSETRON 4 MG/2 ML (SDV) Z0FRAN IV PRN (21:00)
[2018-03-31] MEDS ORDERED: ACETAMINOPHEN 500 MG TAB (TYLENOL) PO PRN (21:00)
[2018-03-31] MEDS: HYDROcodone/APAP 7.5 MG/325 MG (LORTAB, LORCET PLUS) TABLET PO PRN (21:00)
[2018-03-31] MEDS ORDERED: fentaNYL INJECTION 100 MCG/2 ML AMP IV PRN (21:00)
[2018-03-31] MEDS: NS IV 1000 ML 1,000 ML IV SCH (21:03)
[2018-03-31] MEDS: VANCOMYCIN 1 GM/NS 250 ML IVPB IV SCH ×2 (21:04)
[2018-04-01] VITALS: BP 95/54
[2018-04-01] MEDS: KETOROLAC 30 MG/ML VIAL IV SCH ×3 (00:09→11:56)
[2018-04-01] MEDS: MEROPENEM 500 MG in NS (IVPB) 100 ML IV SCH ×3 (00:09→11:57)
[2018-04-01 04:00] VITALS: BP 101/52
[2018-04-01] MEDS: ONDANSETRON 4 MG/2 ML (SDV) Z0FRAN IV PRN (06:02)
[2018-04-01 06:37] LABS: BASOPHILS % (AUTO) 0 % (0-10); EOSINOPHILS # (AUTO) 0.2 10^3/uL (0.0-0.3); EOSINOPHILS % (AUTO) 5 % (0-10); HEMATOCRIT 35 % (35-52); LYMPHOCYTES # (AUTO) 1.9 X 10^3 (1.0-4.0); LYMPHOCYTES % (AUTO) 41 % (12-44); MEAN CORPUSCULAR HEMOGLOBIN 30 PG (25-34); MEAN CORPUSCULAR HGB CONC 34 G/DL (32-36); MEAN CORPUSCULAR VOLUME 88 FL (80-99); MEAN PLATELET VOLUME 10.2 FL (7.4-10.4); MONOCYTES # (AUTO) 0.5 X 10^3 (0.0-1.0); MONOCYTES % (AUTO) 11 % (0-12); NEUTROPHILS % (AUTO) 43 % (42-75); PLATELET COUNT 264 10^3/uL (130-400); RED BLOOD COUNT 4.02 10^6/uL (4.35-5.85); RED CELL DISTRIBUTION WIDTH 12.3 % (10.0-14.5); WHITE BLOOD COUNT 4.7 10^3/uL (4.3-11.0)
[2018-04-01 06:54] LABS: ALANINE AMINOTRANSFERASE 19 U/L (0-55); ALBUMIN 3.5 GM/DL (3.2-4.5); ALKALINE PHOSPHATASE 50 U/L (40-136); BILIRUBIN,TOTAL 0.3 MG/DL (0.1-1.0); BUN/CREATININE RATIO 14; CARBON DIOXIDE 19 MMOL/L (21-32); CHLORIDE 113 MMOL/L (98-107); CREATININE SERUM 0.78 MG/DL (0.60-1.30); GFR ESTIMATED > 60; GLUCOSE 89 MG/DL (70-105); POTASSIUM 4.1 MMOL/L (3.6-5.0); SODIUM 140 MMOL/L (135-145); TOTAL PROTEIN 5.6 GM/DL (6.4-8.2)
[2018-04-01 08:00] VITALS: BP 113/57
[2018-04-01] MEDS ORDERED: FUROSEMIDE 40 MG/4 ML INJ (LASIX) ONE (08:33)
--- NOTE | 2018-04-01 08:34 | History & Physicial ---
History of Present Illness History of Present Illness Reason for visit/HPI PT IS A 32 Y/O FEMALE WHO HAS PREVIOUSLY BEEN SEEN IN MY CLINIC BY THE NURSE PRACTITIONERS - SHE APPARENTLY HAD SYMPTOMS OF A URINARY TRACT INFECTION ABOUT 2 WEEKS AGO, WAS SEEN BY URGENT CARE AND GIVEN ROCEPHIN AND IV FLUIDS WELL ORAL ANTIBIOTICS TO TAKE AN OUTPATIENT. SHE DID NOT IMPROVE, AND WAS TOLD TO PRESENT TO THE HOSPITAL IF HER SYMPTOMS DID NOT IMPROVE. SHE STARTED TO HAVE WORSENING BACK AND FLANK PAIN WITHOUT IMPROVEMENT FROM IBUPROFEN AND THUS PRESENTED TO THE HOSPITAL FOR FURTHER TREATMENT. SHE IS TAKING ORENCIA FOR RHEUMATOID ARTHRITIS AND IS IMMUNOSUPPRESSED FROM THE MEDICATION. Date of Admission Mar 31, 2018 at 19:30 Time Seen by Provider: 08:30 I consulted on this patient on 04/01/18 08:32 Attending Physician Kimberlyn Raymundo MD Admitting Physician Kimberlyn Raymundo MD Consult Allergies and Home Medications Allergies Coded Allergies: No Known Drug Allergies (Verified , 09/04/08) Home Medications Cefdinir 300 Mg Capsule, 300 MG PO BID Prescribed by: CRISSY DIAMOND on 04/01/18 1512 Desvenlafaxine Succinate 100 Mg Tab.er.24h, 100 MG PO DAILY, (Reported) Dextroamphetamine/Amphetamine 20 Mg Cap.er.24h, 20 MG PO DAILY, (Reported) Diclofenac Sodium 75 Mg Tablet.dr, 75 MG PO BID, (Reported) Hydroxychloroquine Sulfate 200 Mg Tablet, 200 MG PO BID, (Reported) L.acidoph & Paracasei,B.lactis 1 Each Capsule, 1 CAP PO DAILY, (Reported) Lorazepam 1 Mg Tablet, 1 MG PO TID PRN for ANXIETY, (Reported) Multivitamin 1 Each Tablet, 1 TAB PO DAILY, (Reported) Nitrofurantoin Monohyd/M-Cryst 100 Mg Capsule, 1 CAP PO BID, (Reported) 10 DAY SUPPLY FILLED 03-27-18 Ondansetron 4 Mg Tab.rapdis, 4 MG PO Q6H PRN for NAUSEA/VOMITING-1ST LINE, ( Reported) Phenazopyridine HCl 97.5 Mg Tablet, 97.5 MG PO TID PRN for URINARY PAIN, ( Reported) Spironolactone 50 Mg Tablet, 50 MG PO DAILY, (Reported) Tretinoin 20 Gm Cream..g., TOP HS, (Reported) [Orencia] , INJ Tu, (Reported) Patient Home Medication List Home Medication List Reviewed: Yes Past Qgyxmvt-Tlbafi-Ocwzve Hx Patient Social History Living Status: LIVES IN [place] Alcohol Use: Denies Use Recreational Drug Use: No Smoking Status: Never a Smoker Physical Abuse Screen: No Sexual Abuse: No Recent Foreign Travel: No Contact w/other who traveled: No Recent Hopitalizations: No Recent Infectious Disease Expo: No Surgeries Yes (RIGHT ELBOW REPLACEMENT SURG) Section Respiratory No Cardiovascular No Neurological No Reproductive System Hx Reproductive Disorders: No Gastrointestinal No Musculoskeletal Yes Rheumatoid Arthritis Endocrine History of Endocrine Disorders: No Cancer No Psychosocial History of Psychiatric Problem: No Behavioral Health Disorders: Anxiety, Depression Blood Transfusions History of Blood Disorders: No Reviewed Nursing Assessment Reviewed/Agree w Nursing PMH: Yes Family Medical History Significant Family History: No Pertinent Family Hx Constitutional: chills; No fever, No weakness EENTM: No hoarseness, No mouth pain, No throat pain Respiratory: No cough, No dyspnea on exertion Cardiovascular: No chest pain, No palpitations Gastrointestinal: abdominal pain Genitourinary: dysuria, frequency Musculoskeletal: no symptoms reported Skin: no symptoms reported Psychiatric/Neurological: No Symptoms Reported All Other Systems Reviewed Negative Unless Noted: Yes Physical Exam Vital Signs Capillary Refill : Less Than 3 Seconds General Appearance: No Apparent Distress, WD/WN Eyes: Bilateral Eye Normal Inspection, Bilateral Eye PERRL, Bilateral Eye EOMI HEENT: PERRL/EOMI, Pharynx Normal Neck: Full Range of Motion, Supple Respiratory: Chest Non Tender, Lungs Clear, Normal Breath Sounds, No Accessory Muscle Use, No Respiratory Distress Cardiovascular: Regular Rate, Rhythm, No Edema Rectal: Deferred Back: Normal Inspection Extremity: Normal Capillary Refill, Normal Range of Motion, Non Tender, No Calf Tenderness, No Pedal Edema Neurologic/Psychiatric: Alert, Oriented x3, No Motor/Sensory Deficits, Normal Mood/Affect Skin: Warm/Dry Lymphatic: No Adenopathy Assessment/Plan Assessment and Plan THIS IS A SHORT STAY SUMMARY URINARY TRACT INFECTION - ON ANTIBIOTICS - URNE REPORT FROM THE URGENT CARE WAS NEGATIVE - MONITOR SYMPTOMS CHRONIC IMMUNOSUPPRESSION AND RHEUMATOID ARTHRITIS - CONTINUE ORAL MEDICATIONS - PT HAD METHOTREXATE, HOLDS THE MEDICATIONS WHILE IN HOSPITAL. BACK PAIN - CHRONIC - HEAT TO BACK, CALL IF NOT IMPROVING. Admission Diagnosis URINARY TRACT INFECTION CHRONIC IMMUNOSUPPRESSION RHEUMATOID ARTHRITIS BACK PAIN Admission Status: Observation Clinical Quality Measures DVT/VTE Risk/Contraindication: Risk Factor Score Per Nursin RFS Level Per Nursing on Admit: 1=Low/No VTE PPX KIMBERLYN RAYMUNDO MD Apr 01, 2018 08:34
[2018-04-01] MEDS: HYDROcodone/APAP 7.5 MG/325 MG (LORTAB, LORCET PLUS) TABLET PO PRN (08:38)
[2018-04-01] MEDS: VANCOMYCIN 1 GM/NS 250 ML IVPB IV SCH ×2 (08:39)
[2018-04-01] MEDS: NS IV 1000 ML 1,000 ML IV SCH ×2 (08:40→11:13)
[2018-04-01] MEDS ORDERED: methylPREDNISolone 40 MG/ML (Solu-MEDROL) VIAL IV NR (09:57)
[2018-04-01] MEDS ORDERED: DICL75TA2 PO (10:35)
[2018-04-01] MEDS ORDERED: HYDR200T46 PO (10:35)
[2018-04-01] MEDS ORDERED: AMPH20CA PO (10:35)
[2018-04-01] MEDS ORDERED: SPIR50TA2 PO (10:35)
[2018-04-01] MEDS ORDERED: LORA1TAB PO (10:35)
[2018-04-01] MEDS ORDERED: TRET20CR14 TOP (10:35)
[2018-04-01] MEDS ORDERED: PHEN97.511 PO (10:35)
[2018-04-01] MEDS ORDERED: ORENCIA INJ (10:35)
[2018-04-01] MEDS ORDERED: DESV100T PO (10:37)
[2018-04-01] MEDS ORDERED: L.AC1CAP6 PO (10:37)
[2018-04-01] MEDS ORDERED: MULT-35 PO (10:37)
[2018-04-01 12:00] VITALS: BP 111/72
[2018-04-01] MEDS ORDERED: CEFD300C3 PO (15:12)
[2018-04-02] MEDS ORDERED: TROUGH ORDER-PHARMACY XX NR (08:00)
[2018-04-02] MEDS ORDERED: methylPREDNISolone 125 MG (Solu-MEDROL) VIAL IVP NR (09:00)
== END 2018-04-01 14:40 | disposition home or self-care (01) ==
LOC: EDUNIT# 16:35 → ER 16:37 → UNDOADMOB 19:30 → 4TH 19:30 → UNDODISOB 04-01 15:30
PROVIDERS: ADMIT Internal Medicine; ATTEND Family Medicine
DX: N30.10 Interstitial cystitis (chronic) without hematuria (principal); M06.9 Rheumatoid arthritis, unspecified; F41.9 Anxiety disorder, unspecified; F32.9 Major depressive disorder, single episode, unspecified; M54.5 Low back pain; Z96.621 Presence of right artificial elbow joint
CPT/HCPCS: 36415; 74176; 80053; 81000; 84703; 85025; 87088; 96374; G0378

== ENCOUNTER 2020-04-15 10:53 | Outpatient (RCR) | payer BC ==
[~2020-04-15] VITALS: Ht 162.6 cm; Wt 88.6 kg
[~2020-04-15 10:53] MED LIST changes: +BETAMETHASONE ACE/NA PHOS 6 MG/ML (CELESTONE SOLUSPAN) IM SCH; +CEFD300C3 PO; +DESV100T PO; +DEXT20CA4 PO; +DICL75TA2 PO; +HYDR200T46 PO; +L.AC1CAP6 PO; +LORA1TAB PO; +MULT-35 PO; +NITR100C10 PO; +ONDA4TAB11 PO; +ORENCIA INJ; +PHEN97.511 PO; +SPIR50TA4 PO; +TRET20CR14 TOP
--- NOTE | 2020-04-15 11:05 | NUR ---
DERRELL CLEMENT presented to unit via ambulation from ED, accompanied by , with c/o spotting, contractions. Pt. weighed, gowned, voided, and to bed. EFHM and TOCO applied, VS taken. Pt. oriented to bed controls, call light, TV, heat, and A/C controls.
[2020-04-15 11:20] VITALS: BP 136/82
--- NOTE | 2020-04-15 11:20 | NUR ---
pt reports having spotting x1 this a.m.when using BR, pink in color. states Left sided sharp lower abd pain x approx 45 mins prior to arrival, then having "light" contractions. when giving UA specimen, no blood was reported by pt. denies heavy lifting, strenuous activity or recent intercourse. +FM. denies UA sx's. hx of PTD @ 36 weeks.
[2020-04-15 11:36] LABS: BILIRUBIN,URINE NEGATIVE (NEGATIVE); CLARITY,URINE CLEAR; COLOR,URINE YELLOW; GLUCOSE, URINE (UA) NEGATIVE (NEGATIVE); KETONES,URINE NEGATIVE (NEGATIVE); LEUKOCYTE ESTERASE ,URINE NEGATIVE (NEGATIVE); NITRITE,URINE NEGATIVE (NEGATIVE); PROTEIN,URINE NEGATIVE (NEGATIVE)
[2020-04-15 11:40] VITALS: BP 136/82
[2020-04-15 11:47] LABS: BACTERIA,URINE FEW /HPF; SQUAMOUS EPITHELIAL CELL,UR RARE /HPF
--- NOTE | 2020-04-15 12:26 | NUR ---
here. admission c/o/'s, monitor tracing, and pt hx reviewed. order received for gentle SVE. if cervix closed, may dismiss to home.
--- NOTE | 2020-04-15 12:29 | NUR ---
SVE closed, thick, anterior. no blood noted on glove.
--- NOTE | 2020-04-15 12:50 | NUR ---
dismissal instructions given, verbalizes understanding. instructed pt to return for 2nd Betamethasone injection. signature page signed, placed on chart. encouraged increased oral intake, Tylenol and Benadryl prn pain. pt ambulated to private vehicle with @ side. pt stable with no sx's of distress
[2020-04-15] MEDS ORDERED: BETA6VIA IJ ×2 (14:56→14:58)
--- NOTE | 2020-04-16 08:23 | Physician Query-Final Dx ---
HALLE LEVY 04/16/20 0823: Clinic Account Progress/Dx Physician Query: Please give diagnosis Please include # weeks gestation Date of Service Apr 15, 2020 at 10:53 SEGUNDO CALIXTO DO 04/17/20 0757: Clinic Account Progress/Dx DIAGNOSIS: Diagnosis 33 week cramping and spotting Hx of low lying placenta HALLE LEVY Apr 16, 2020 08:23 SEGUNDO CALIXTO DO Apr 17, 2020 07:57
[2020-04-16] MEDS ORDERED: BETAMETHASONE ACE/NA PHOS 6 MG/ML (CELESTONE SOLUSPAN) ONE (13:44)
[2020-04-16] MEDS ORDERED: BETAMETHASONE ACE/NA PHOS 6 MG/ML (CELESTONE SOLUSPAN) IM SCH (14:00)
== END 2020-04-16 13:57 | disposition home or self-care (01) ==
LOC: LDRP 10:53 → WSo 10:53 → LDRP 10:54 → WSo 10:54 → LDRP 12:50 → WSo 12:50 → LDRP 13:43 → EDSTATUS 04-16 13:37 → WSo 04-16 13:57
PROVIDERS: ATTEND Obstetrics & Gynecology
DX: O26.859 Spotting complicating pregnancy, unspecified trimester (principal); O62.9 Abnormality of forces of labor, unspecified; Z3A.00 Weeks of gestation of pregnancy not specified
CPT/HCPCS: 81000; 87088; 96372; 99213

== ENCOUNTER → 2020-04-26 | Outpatient (CLI) | payer BC ==
[~2020-04-26] MED LIST changes: +BETA6VIA IJ; -BETAMETHASONE ACE/NA PHOS 6 MG/ML (CELESTONE SOLUSPAN) IM SCH
--- NOTE | 2020-04-26 15:21 | Diagnostic Imaging Report ---
INDICATION: Evaluate growth. TECHNIQUE: Multiple real-time grayscale images were obtained over the gravid uterus. COMPARISON: None FINDINGS: There is a single live fetus in a cephalic presentation. heart rate was recorded at 156 bpm. Placenta is posterior. Amniotic fluid index is 13.2 cm. Cervical length is approximately 6.5 cm. Biophysical profile was performed with a normal score of 8/8. Biometrical measurements are as follows: Biparietal 8.39 cm, age 33 weeks 6 days. Head circumference 31.41 cm, age 35 weeks 2 days. Abdominal circumference 30.84 cm, age 34 weeks 6 days. Femur length 7.03 cm, age 36 weeks 1 days. Sonographic estimate age: 35 weeks 1 days. Sonographic estimated date of delivery: 05/30/2020. Estimated Weight: 2585 gm (+/- 377 gm). LMP percentile: 79%. heart rate: 156 beats per minute. number: 1 of 1. IMPRESSION: Single live IUP approximately 35 weeks gestational age demonstrating sonographic EDC of 05/30/2020. Biophysical profile score is normal 05/29. Dictated by: Dictated on workstation # [id number]
== END ==
LOC: RAD 13:45
PROVIDERS: ATTEND Obstetrics & Gynecology
DX: O99.89 Other specified diseases and conditions complicating pregnancy, childbirth and the puerperium (principal); M06.80 Other specified rheumatoid arthritis, unspecified site; Z3A.33 33 weeks gestation of pregnancy
CPT/HCPCS: 76805; 76819

== ENCOUNTER 2020-05-13 21:49 | Outpatient (CLI) | payer BC ==
[~2020-05-13] VITALS: Ht 162.6 cm; Wt 92.5 kg
--- NOTE | 2020-05-13 21:55 | NUR ---
DERRELL CLEMENT presented to unit via ambulation from home/ED, accompanied by , with c/o CONTRACTIONS. DERRELL CLEMENT weighed, gowned, voided, and to bed. EFHM and TOCO applied, VS taken. DERRELL CLEMENT oriented to bed controls, call light, TV, heat, and A/C controls.
[2020-05-13 22:05] VITALS: BP 131/76
[2020-05-13 22:27] LABS: BILIRUBIN,URINE NEGATIVE (NEGATIVE); CLARITY,URINE CLEAR; COLOR,URINE YELLOW; GLUCOSE, URINE (UA) NEGATIVE (NEGATIVE); KETONES,URINE NEGATIVE (NEGATIVE); LEUKOCYTE ESTERASE ,URINE NEGATIVE (NEGATIVE); NITRITE,URINE NEGATIVE (NEGATIVE); PROTEIN,URINE NEGATIVE (NEGATIVE)
[2020-05-13 22:34] LABS: BACTERIA,URINE NEGATIVE /HPF
[2020-05-13] MEDS ORDERED: PREN-142 PO (22:58)
[2020-05-13] MEDS ORDERED: HYDR200T78 PO (22:58)
[2020-05-13] MEDS ORDERED: PRED5TAB PO (22:58)
--- NOTE | 2020-05-13 23:05 | NUR ---
D/C instructions given & explained, reassurance given, pt. verbalized understanding & signed, copy of D/C instructions to pt. Pt. left [facility] ambulatory escorted by , to home via private vehicle.
== END 2020-05-13 23:05 | disposition home or self-care (01) ==
LOC: WSo 21:49 → LDRP 21:50 → WSo 23:05
PROVIDERS: ATTEND Obstetrics & Gynecology
DX: O62.9 Abnormality of forces of labor, unspecified (principal); Z3A.36 36 weeks gestation of pregnancy
CPT/HCPCS: 81000; G0463; 99213

== ENCOUNTER → 2022-04-11 | Outpatient (CLI) | payer BC ==
[~2022-04-11] MED LIST changes: +DOCU-239 PO; +HYDR-4226 PO; +HYDR200T78 PO; +IBUP-844 PO; +PRED5TAB PO; +PREN-142 PO
[2022-04-11 12:08] LABS: HEMATOCRIT 43 % (35-52); HEMOGLOBIN 14.1 g/dL (11.5-16.0); MEAN CORPUSCULAR HEMOGLOBIN 29 pg (25-34); MEAN CORPUSCULAR HGB CONC 33 g/dL (32-36); MEAN CORPUSCULAR VOLUME 89 fL (80-99); MEAN PLATELET VOLUME 9.3 fL (9.0-12.2); PLATELET COUNT 335 10^3/uL (130-400); WHITE BLOOD COUNT 6.4 10^3/uL (4.3-11.0)
[2022-04-11 12:25] LABS: ALBUMIN 4.5 GM/DL (3.2-4.5); BILIRUBIN,TOTAL 0.3 MG/DL (0.1-1.0); CALCIUM 9.4 MG/DL (8.5-10.1); CREATININE SERUM 0.85 MG/DL (0.60-1.30); POTASSIUM 4.3 MMOL/L (3.6-5.0); TOTAL PROTEIN 7.6 GM/DL (6.4-8.2)
--- NOTE | 2022-04-11 13:05 | Diagnostic Imaging Report ---
PROCEDURE: CT abdomen and pelvis without contrast. TECHNIQUE: Multiple contiguous axial images were obtained through the abdomen and pelvis without the use of intravenous contrast. Auto Exposure Controls were utilized during the CT exam to meet ALARA standards for radiation dose reduction. INDICATION: Left lower quadrant abdominal pain with diarrhea and nausea. COMPARISON: Correlation is made with prior CT from 03/31/2018. FINDINGS: Imaging through the lung bases demonstrates a stable tiny subpleural nodule in the right middle lobe. Liver and gallbladder are unremarkable. There is no biliary ductal dilatation. Pancreas and spleen are unremarkable. No adrenal mass is detected. No renal calculi or hydronephrosis is detected. Bowel loops appear to be nonobstructed. No definite bowel wall thickening or inflammatory changes are seen. There is no free fluid or fluid collection identified. The bladder and uterus are unremarkable. Bony structures are nonacute. IMPRESSION: Unremarkable noncontrast CT of the abdomen and pelvis. No acute abnormality is detected. Dictated by: Dictated on workstation # [id number]
== END ==
LOC: RAD 12:30
PROVIDERS: ATTEND Nurse Practitioner Family
DX: R10.32 Left lower quadrant pain (principal); R19.7 Diarrhea, unspecified; R11.0 Nausea
CPT/HCPCS: 36415; 74176; 80053; 84703; 85027; 86141

== ENCOUNTER → 2022-06-09 | Outpatient (CLI) | payer BC ==
--- NOTE | 2022-06-09 17:55 | Diagnostic Imaging Report ---
INDICATION: Juvenile arthritis. EXAMINATION: Cervical spine. FINDINGS: AP, lateral and oblique views of the cervical spine were obtained. There is disc space narrowing at C5-C6. There are small osteophytes forming at that level. Posterior elements are intact. There is no fracture or prevertebral soft tissue swelling. IMPRESSION: Minimal degenerative disc changes at C5-C6. No other abnormality is seen. Dictated by: Dictated on workstation # [id number]
--- NOTE | 2022-06-09 18:40 | Diagnostic Imaging Report ---
EXAMINATION: Left foot radiographs, 3 views. Right foot radiographs, 3 views. COMPARISON: None. HISTORY: 36-year-old female, history of juvenile idiopathic arthritis. Bilateral foot pain. FINDINGS: There is a normal variant os perineum on the left. There does appear to be ankylosis across the third tarsometatarsal articulation on the left. There is no identified bone erosion. There is no prominent focal soft tissue swelling. There is also question of ankylosis across the right third tarsometatarsal articulation. There is also a normal variant os peroneum on the right. There is no identified bone erosion. There is no prominent focal soft tissue swelling of the right. IMPRESSION: 1. There does appear to be ankylosis across the bilateral third tarsometatarsal articulations which potentially could be seen with juvenile idiopathic arthritis. 2. Additional joint spaces appear well-preserved without identified bone erosion. Dictated by: Dictated on workstation # [id number]
--- NOTE | 2022-06-09 18:42 | Diagnostic Imaging Report ---
EXAMINATION: Right hand radiographs, 2 views. Left hand radiographs, 2 views. COMPARISON: None. HISTORY: 36-year-old female, bilateral hand pain. History of juvenile idiopathic arthritis. FINDINGS: There is severe radiocarpal joint space loss. There is severe distal radial ulnar arthritis. There is also intercarpal joint space loss and severe joint space loss at the second, third, fourth and fifth carpometacarpal articulations on the right. There is no identified bone erosion. There is irregularity of the contour of the distal radius and ulna on the right. There is severe joint space loss of the left radiocarpal articulation. There is mild left distal radial ulnar arthritis. There is also joint space loss of the left second through fifth carpometacarpal articulations. IMPRESSION: 1. Bilateral fairly symmetric advanced radiocarpal, intercarpal and carpometacarpal arthritis which would be compatible with provided history of juvenile idiopathic arthritis. 2. Advanced arthritis at the right distal radioulnar joint and mild arthritis at the left distal radioulnar joint. Dictated by: Dictated on workstation # [id number]
== END ==
LOC: RAD 15:07
PROVIDERS: ATTEND Internal Medicine Rheumatology
DX: M08.89 Other juvenile arthritis, multiple sites (principal)
CPT/HCPCS: 72052